=== PATIENT | female | born 1945 ===

== ENCOUNTER 2017-12-18 16:32 | Outpatient (CLI) | payer OTHER ==
--- NOTE | 2017-12-18 17:43 | RAD ---
TWO VIEW CHEST: 12/18/17 HISTORY: Dyspnea on exertion. The lungs are clear. There is no evidence of vascular congestion or edema. Heart size is within gino l range. Dual lead pacemaker noted in place. Osseous structures are unremarkable. IMPRESSION: No evidence of infiltrate or edema. POS: [facility]
== END 2017-12-18 16:33 | disposition home or self-care (01) ==
LOC: MADRAD 16:32
PROVIDERS: ATTEND Family Medicine
DX: R06.09 Other forms of dyspnea (principal)
CPT/HCPCS: 71046